=== PATIENT | female | born 1960 | race Caucasian/White ===

== ENCOUNTER → 2016-10-04 | Outpatient (CLI) | payer BC ==
[2016-10-04 08:29] LABS: Cholesterol 270 mg/dL (<200); HDL Cholesterol 89 mg/dL (40-60); Triglycerides 77 mg/dL (<150)
== END | disposition home or self-care (01) ==
LOC: LABWHC1 07:21
PROVIDERS: ATTEND Internal Medicine
DX: I20.9 Angina pectoris, unspecified (principal)
CPT/HCPCS: 36415; 80061

== ENCOUNTER → 2020-06-13 | Outpatient (CLI) | payer OTHER ==
--- NOTE | 2020-06-13 15:47 | XR ---
EXAMINATION TYPE: XR knee complete LT DATE OF EXAM: 06/13/2020 COMPARISON: None HISTORY: 59-year-old female S83.90XA TECHNIQUE: 3 views FINDINGS: Extensor mechanism is intact. No sizable joint effusion. No acute fracture subluxation, or dislocatio n. IMPRESSION: No acute osseous abnormality seen.
== END ==
LOC: RADXRMAIN 15:23
PROVIDERS: ATTEND Emergency Medicine
DX: S83.90XA Sprain of unspecified site of unspecified knee, initial encounter (principal)

== ENCOUNTER 2021-01-23 10:52 | Emergency (ER) | payer OTHER, BC ==
--- NOTE | 2021-01-23 12:32 | ED ---
General Adult HPI - General Chief complaint: ENT Stated complaint: [facility]-FB in ear Time Seen by Provider: 01/23/21 12:21 Source: patient Mode of arrival: ambulatory Limitations: no limitations - History of Present Illness Initial comments: Dictation was produced using [employer] dictation software. please excuse any grammatical, word or spelling errors. Chief Complaint: 60-year-old female presents with left ear foreign body History of Present Illness: This 60-year-old female presents with left ear foreign body she wears earbuds often while she runs, listen to music and takes phone calls. At approximately 8:00 this morning she pulled her ear phones out of her ear. She noticed that there left earbuds was missing. States that she i s concerned she thought there was a drop and water in there. Patient noticed that her ear but was stuck in her left external auditory canal The ROS documented in this emergency department record has been reviewed and confirmed by me. Those systems with pertinent positive or negative responses have been documented in the HPI. All other systems are other negative and/or noncontributory. PHYSICAL EXAM: General Impression: Alert and oriented x3, not in acute distress HEENT: Normocephalic atraumatic, extra-ocular movements intact, pupils equal and reactive to light bilaterally, mucous membranes moist. Left ear canal: Rubber ear foreign body in the left external auditory canal Cardiovascular: Heart regular rate and rhythm Chest: Able to complete full sentences, no retractions, no tachypnea ED course: 60 y Old female presents with left ear foreign body. Foreign body was removed. Vital signs stable. Patient discharged. - Related Data Allergies Allergy/AdvReac Type Severity Reaction Status Date / Time hydrocodone AdvReac Vomiting Verified 01/23/21 11:56 Review of Systems ROS Statement: Those systems with pertinent positive or pertinent negative responses have been documented in the HPI. ROS Other: All systems not noted in ROS Statement are negative. Past Medical History Past Medical History: Hyperlipidemia History of Any Multi-Drug Resistant Organisms: None Reported Past Surgical History: Orthopedic Surgery Additional Past Surgical History / Comment(s): R shoulder surgery Past Psychological History: No Psychological Hx Reported Smoking Status: Never smoker Past Alcohol Use History: Daily Past Drug Use History: None Reported General Exam Limitations: no limitations Procedures - Foreign Body Removal Ear Location: ear canal (L) Foreign Body Suspected: other (ear phone rubber bud) Foreign Body Removed: yes Foreign Body Removal Technique: instrumentation Patient Tolerated Procedure: well Complications: none Disposition Clinical Impression: Ear foreign body Disposition: HOME SELF-CARE Condition: Good Instructions (If sedation given, give patient instructions): Ear Foreign Body (ED) Is patient prescribed a controlled substance at d/c from ED?: No Referrals: Nonstaff,Physician [Primary Care Provider] - 1-2 days
== END 2021-01-23 12:46 | disposition home or self-care (01) ==
LOC: EC 10:52
DX: T16.2XXA Foreign body in left ear, initial encounter (principal); Z88.5 Allergy status to narcotic agent; W45.8XXA Other foreign body or object entering through skin, initial encounter
CPT/HCPCS: 99282